=== PATIENT | female | born 1990 | race American Indian/Alaskan Native ===

== ENCOUNTER 2021-03-07 18:53 | Emergency (ER) | payer OTHER ==
[2021-03-07] MEDS ORDERED: MORPHINE 4 MG/1 ML INJ IV ONE (19:12)
[2021-03-07] MEDS ORDERED: METOCLOPRAMIDE 10 MG/2 ML INJ IV ONE (19:12)
[2021-03-07] MEDS ORDERED: SODIUM CHLORIDE 0.9% 1000 ML 1,000 ML IV ONE (19:12)
--- NOTE | 2021-03-07 19:13 | Emergency Department Report ---
ED Abdominal Pain HPI - General Chief Complaint: Nausea/Vomiting/Diarrhea Stated Complaint: ALCOHOL POISONING Time Seen by Provider: 03/07/21 19:06 Source: patient Mode of arrival: Ambulatory Limitations: No Limitations - History of Present Illness Initial Comments: 31 year old female who denies any past medical hx presents to ED with c/o nausea and vomiting. She states she has been vomiting since this morning. She reports multiple episodes of vomiting. She states emesis mainly "liquid" and now she noticed coffe ground emesis prior to coming in. She reports periumbilical pain. She denies any diarrhea or constipation or uti symptoms. She states she started her MC today. She admits that she drinking ETOH last night. She had mix drinks with eggnog and then 4 shots of liquor. She states she typically drinks socially and usually not that much. She denies illicit drug use. She denies hx of abdominal surgeries. She reports no other symptoms at this time. MD Complaint: abdominal pain, other (Nausea and vomiting ) -: Sudden, This morning Location: periumbilical - Related Data Previous Rx's Medication Instructions Recorded Last Taken Type Famotidine [Pepcid] 20 mg PO BID #30 tablet 03/07/21 Unknown Rx Fluconazole [Diflucan TAB] 200 mg PO QDAY #2 tablet 03/07/21 Unknown Rx Ondansetron [Zofran Odt] 4 mg PO Q8HR PRN #15 tab.rapdis 03/07/21 Unknown Rx Pantoprazole [Protonix] 40 mg PO QDAY #30 tablet 03/07/21 Unknown Rx Allergies Allergy/AdvReac Type Severity Reaction Status Date / Time bee venom protein (honey bee) AdvReac Unknown Verified 03/07/21 18:59 Sulfa (Sulfonamide AdvReac Unknown Verified 03/07/21 18:59 Antibiotics) tree nut AdvReac Unknown Verified 03/07/21 18:59 ED Review of Systems ROS: Stated complaint: ALCOHOL POISONING Other details as noted in HPI Comment: All other systems reviewed and negative Gastrointestinal: abdominal pain, nausea, vomiting ED Past Medical Hx - Medications Home Medications: Home Medications Medication Instructions Recorded Confirmed Last Taken Type Famotidine [Pepcid] 20 mg PO BID #30 tablet 03/07/21 Unknown Rx Fluconazole [Diflucan TAB] 200 mg PO QDAY #2 tablet 03/07/21 Unknown Rx Ondansetron [Zofran Odt] 4 mg PO Q8HR PRN #15 tab.rapdis 03/07/21 Unknown Rx Pantoprazole [Protonix] 40 mg PO QDAY #30 tablet 03/07/21 Unknown Rx ED Physical Exam - General Limitations: No Limitations General appearance: alert, in distress (pt appears uncomfortably ) - Head Head exam: Present: atraumatic, normocephalic, normal inspection - Eye Eye exam: Present: normal appearance, PERRL, EOMI Pupils: Present: normal accommodation - ENT ENT exam: Present: mucous membranes dry - Neck Neck exam: Present: normal inspection, full ROM. Absent: meningismus - Respiratory Respiratory exam: Absent: respiratory distress - Cardiovascular Cardiovascular Exam: Present: regular rate - GI/Abdominal GI/Abdominal exam: Present: soft. Absent: distended, tenderness, guarding, rebound - Neurological Exam Neurological exam: Present: alert, oriented X3, CN II-XII intact, normal gait - Psychiatric Psychiatric exam: Present: normal affect, normal mood - Skin Skin exam: Present: intact ED Course Vital Signs 03/07/21 03/07/21 19:00 22:05 Temperature 97.5 F L Pulse Rate 79 80 Respiratory 24 14 Rate Blood Pressure 127/84 Blood Pressure 136/81 [Right] O2 Sat by Pulse 100 Oximetry ED Medical Decision Making - Lab Data Result diagrams: 03/07/21 19:19 03/07/21 19:19 - Medical Decision Making 2114: Pt reports feeling better after meds and fluids. She was able to tolerate PO fluids without vomiting during stay. Repeat abd exam soft and non tender. She is currently not toxic or ill appearing. She is neurologically intact. Labs reviewed - CO of 16, anion gap of 21, likely secondary to dehydration/alcoholic ketoacidosis; UA concerning for UTI and also + yeast. Remaining labs unremarakble. Discussed results with patient. At this time there is no indication for additional work up or admission. Discussed suspected dx and treatment plan with patient. She expressed understanding of instructions and agreed plan. Pt stable at time of d/c. Critical care attestation.: If time is entered above; I have spent that time in minutes in the direct care of this critically ill patient, excluding procedure time. ED Disposition Clinical Impression: Alcoholic gastritis, UTI (urinary tract infection), Yeast vaginitis, Dehydration Disposition: HOME / SELF CARE / HOMELESS Is pt being admited?: No Does the pt Need Aspirin: No Condition: Stable Instructions: Gastritis, Adult, Nadw-ol-Wors, Vaginal Yeast Infection, Adult, Urinary Tract Infection, Adult Additional Instructions: Take the zofran as prescribed for any continue nausea and vomiting. Take the protonix and the pepcid as prescribed. Take the keflex as prescribed for your UTI and take the diflucan as prescribed for yeast infection. I recommend avoiding alcohol, as well as spicy foods, acid foods and caffiene for about 2 weeks. Follow up closely with PCP. Return to ED if worse. Prescriptions: Fluconazole [Diflucan TAB] 200 mg PO QDAY #2 tablet Famotidine [Pepcid] 20 mg PO BID #30 tablet Pantoprazole [Protonix] 40 mg PO QDAY #30 tablet Ondansetron [Zofran Odt] 4 mg PO Q8HR PRN #15 tab.rapdis PRN Reason: nausea/vomiting Referrals: [facility] [Provider Group] - 3-5 Days Forms: Work/School Release Form(ED) Time of Disposition: 21:09
[2021-03-07 19:38] LABS: Hematocrit 42.2 % (30.3-42.9); Hemoglobin 13.1 gm/dl (10.1-14.3); Mean Corpuscular HGB Conc 31 % (30-34); Mean Corpuscular Volume 74 fl (79-97); Platelet Count 293 K/mm3 (140-440); Red Blood Count 5.69 M/mm3 (3.65-5.03); Red Cell Distribution Width 15.3 % (13.2-15.2)
[2021-03-07 19:55] LABS: Alanine Aminotransferase 8 units/L (7-56); Albumin 4.2 g/dL (3.9-5); Blood Urea Nitrogen 5 mg/dL (7-17); Calcium 8.9 mg/dL (8.4-10.2); Hemolysis Index 39
[2021-03-07 19:57] LABS: BUN/Creatinine Ratio 8
[2021-03-07 20:26] LABS: Anisocytosis RARE; Hypochromasia 1+; Total Cells Counted 100
[2021-03-07 21:00] LABS: Bacteria,Urine 1+ /HPF (Negative); Bilirubin,Urine NEG (Negative); Blood,Urine MOD (Negative); Color,Urine Yellow (Yellow); Mucus,Urine 1+ /HPF; Urobilinogen,Urine < 2.0 mg/dL (<2.0)
[2021-03-07 22:06] VITALS: BP 136/81
== END 2021-03-07 22:11 | disposition home or self-care (01) ==
LOC: ED 18:53
DX: K29.20 Alcoholic gastritis without bleeding (principal); N39.0 Urinary tract infection, site not specified; B37.3 Candidiasis of vulva and vagina; E86.0 Dehydration; Z91.038 Other insect allergy status; Z88.2 Allergy status to sulfonamides; Z91.018 Allergy to other foods
CPT/HCPCS: 36415; 80053; 81001; 83690; 84703; 85007; 85025; 96361; 96374; 96375; 99283; J2270; J2765; J7030; Q0162